=== PATIENT | male | born 1975 | race Caucasian/White ===

== ENCOUNTER 2017-01-17 16:13 | Emergency (ER) | payer SELFPAY ==
[2017-01-17 16:17] VITALS: TEMP 97.5
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
[2017-01-17] MEDS ORDERED: ONDANSETRON DISINTEGRATING 4 MG TAB PO ONE (16:56)
[2017-01-17] MEDS ORDERED: TDAP ADULT 0.5 ML INJ (BOOSTRIX) IM ONE (16:56)
[2017-01-17] MEDS ORDERED: AZITHROMYCIN 250 MG TAB PO ONE (16:56)
[2017-01-17 19:30] VITALS: BP 124/92; PULSE 120; RESP 19; O2SAT 95
== END 2017-01-17 19:30 | disposition home or self-care (01) ==
DX: T74.21XA Adult sexual abuse, confirmed, initial encounter (principal); I10 Essential (primary) hypertension; F17.200 Nicotine dependence, unspecified, uncomplicated